=== PATIENT | male | born 1935 | race Caucasian/White ===

== ENCOUNTER 2021-09-17 20:00 | Emergency (ER) | payer OTHER ==
[2021-09-17] MEDS ORDERED: Ketorolac Tromethamine 60 MG/2 ML VIAL ONE (21:04)
== END 2021-09-17 21:55 | disposition still patient (30) ==
LOC: NAV ERS 20:00
DX: R07.89 Other chest pain (principal); Z79.899 Other long term (current) drug therapy; E03.9 Hypothyroidism, unspecified; I10 Essential (primary) hypertension
CPT/HCPCS: 96372; J1885